=== PATIENT | female | born 1990 | race Caucasian/White ===

== ENCOUNTER 2016-12-16 09:34 | Emergency (ER) | payer BC, OTHER ==
[~2016-12-16] VITALS: Ht 167.6 cm; Wt 58.3 kg
[2016-12-16 09:47] VITALS: TEMP 36.9; Ht 167.6 cm; Wt 58.3 kg
[2016-12-16] MEDS ORDERED: XYLOCAINE 1%/SOD BICARB 20 ML VIAL INFIL ONE (10:00)
--- NOTE | 2016-12-16 11:09 | EMERGENCY ROOM VISIT NOTE ---
ED Visit Note First contact with patient: 09:49 CHIEF COMPLAINT: Left Knee laceration HISTORY OF PRESENT ILLNESS: This 26-year-old female presents the ER with chief complaint of a laceration to her left knee. The patient states that she was running and tripped and fell into some rocks. The patient washed out the wound. This occurred approximately one hour ago. The patient is able to walk on her leg. The patient's tetanus is up-to-date. REVIEW OF SYSTEMS: 6 system review was performed and was negative unless stated otherwise in history of present illness. PMH: The patient is healthy; fractured clavicle SOCIAL HISTORY: Patient lives with her . The patient denies any tobacco or alcohol use. PHYSICAL EXAM: Vital Signs: Were reviewed Reviewed Nurse's notes. GENERAL: 26- year-old white female appears in no acute distress. MENTAL Status: Alert and oriented 3. LEFT KNEE: No gross bony deformity noted. No erythema or edema noted. Patient is full range of motion of her left knee. No ligament instability noted. There is a 3 cm horizontal laceration just inferior to the patella on the anterior surface. There is no active bleeding. The wound looks dirty. Deep structures are visualized. EMERGENCY DEPARTMENT COURSE: The patient was evaluated. Wound Repair: Complexity: Basic. Verbal consent was obtained after the risks and benefits were explained, including but not limited to bleeding, scarring, infection, pain, and bone/joint /nerve damage. The skin was prepped with betadine and a sterile field set. The wound was anesthetized with 3.0ml of 1% buffered lidocaine. Copious irrigation was performed using sterile saline and a small amount of debris was removed with forceps.. Debridement was not performed. The wound edges were approximated using 4-0 Ethilon with 6 simple interrupted sutures. Hemostasis and excellent approximation was achieved. Antibacterial ointment and a sterile dressing applied. Detailed wound care instructions and signs and symptoms of infection reviewed with the patient. No complications and the patient tolerated the procedure well. DIAGNOSIS: 3 cm left knee laceration DISCHARGE INSTRUCTIONS & TREATMENT: Take Keflex as prescribed. Keep wound clean and dry. No water on the area for 12-24 hrs then no soaking until sutures removed. Do not allow any crusting or dried blood to accumulate on sutures. If this occurs, use a 1:1 solution of hydrogen peroxide/water on a Q- tip to clean the wound. Use an antibiotic ointment for 3-4 days, then let wound dry. Suture removal in 10 days. Follow up sooner for any signs of infection (increasing redness, swelling, drainage). Ice and elevate for swelling and pain. Tylenol 650 mg every 6 hrs for pain. Current/Historical Medications No Active Prescriptions or Reported Meds Allergies Coded Allergies: No Known Allergies (Unverified , 08/27/09) Vital Signs Date Time Temp Pulse Resp B/P (MAP) Pulse Ox O2 Delivery O2 Flow Rate FiO2 12/16/16 09:47 36.9 104 20 117/69 100 Room Air Departure Information Prescriptions No Active Prescriptions or Reported Meds Referrals No Doctor, Assigned (PCP) Patient Instructions [facility]
[2016-12-16] MEDS ORDERED: CEPH500C2 PO (11:11)
[2016-12-16 11:24] VITALS: BP 108/69; PULSE 70; O2SAT 100
== END 2016-12-16 11:28 | disposition home or self-care (01) ==
LOC: C.EDB 09:36 → C.EDC 11:28
DX: S81.012A Laceration without foreign body, left knee, initial encounter (principal); W01.0XXA Fall on same level from slipping, tripping and stumbling without subsequent striking against object, initial encounter; Z87.81 Personal history of (healed) traumatic fracture

== ENCOUNTER 2016-12-18 10:38 | Emergency (ER) | payer BC ==
[~2016-12-18] VITALS: Ht 167.6 cm; Wt 58.5 kg
[~2016-12-18 10:38] MED LIST: CEPH500C2 PO
[2016-12-18 10:42] VITALS: BP 112/72; TEMP 36.9; Ht 167.6 cm; Wt 58.5 kg
[2016-12-18] MEDS ORDERED: CEFTRIAXONE SOD INJ 1 GM ADDVIAL IV STA (10:54)
[2016-12-18] MEDS ORDERED: KETOROLAC TROMETHAMINE 30 MG/ML VIAL IV STA (10:54)
[2016-12-18 11:19] LABS: BASO % 0.3 %; BASO ABS # 0.02 K/uL (0-0.2); COMPLETE YES; EOS % 0.4 %; HEMATOCRIT 39.7 % (37-47); IG% 0.1 %; LYMPH % 15.3 %; LYMPH ABS # 1.04 K/uL (1.2-3.4); MEAN CELL VOLUME 97.1 fL (80-100); MEAN PLATELET VOLUME 9.3 fL (7.4-10.4); MONO % 9.8 %; NEUT % 74.1 %; PLATELET COUNT 243 K/uL (130-400); RED BLOOD COUNT 4.09 M/uL (4.2-5.4); WHITE BLOOD COUNT 6.81 K/uL (4.8-10.8)
[2016-12-18 11:36] LABS: BUN/CREATININE RATIO 16.8 (10-20); CALCIUM 8.7 mg/dl (8.5-10.1); CREATININE 0.64 mg/dl (0.60-1.20); POTASSIUM 3.7 mmol/L (3.5-5.1)
[2016-12-18] MEDS ORDERED: SULF800T23 PO (11:48)
[2016-12-18] MEDS ORDERED: CEPH500C PO (11:48)
--- NOTE | 2016-12-18 11:50 | EMERGENCY ROOM VISIT NOTE ---
History First contact with patient: 10:47 Chief Complaint: WOUND INFECTION Stated Complaint: INFECTION FROM SUTURES-SEEN IN ER ON FRI MORNING Nursing Triage Summary: pt reports stitches to L knee on Fri, noted sat increased redness , swelling and drainage from site pt currently on keflex which was started on Mon History of Present Illness The patient is a 26 year old female who presents to the Emergency Room with complaints of infection at the site of her sutures on her left knee. The patient was seen here 2 days ago for a laceration just below her left patella. She had fallen onto the grass and [place]. She has been taking Keflex as prescribed to help prevent infection. Last night she noticed that there was some drainage from the wound and redness surrounding it. Today there is less drainage but the area is still red around the wound. The patient denies any fevers. Review of Systems 6 system review was performed and was negative unless stated otherwise in history of present illness. Past Medical/Surgical History Broken clavicle Social History Smoking Status: Never Smoker Alcohol Use: none Drug Use: none Marital Status: Housing Status: lives with family Occupation Status: employed Current/Historical Medications Scheduled Cephalexin Monohydrate (Keflex), 500 MG PO TID Physical Exam Vital Signs Date Time Temp Pulse Resp B/P (MAP) Pulse Ox O2 Delivery O2 Flow Rate FiO2 12/18/16 10:42 36.9 90 20 112/72 100 Room Air Physical Exam GENERAL: 26-year-old white female appears in no acute distress. MENTAL Status: Alert and oriented 3. LUNGS: Clear auscultation without wheezes rales or rhonchi. CARDIAC: Regular rate and rhythm without murmur. Pulses is full and equal throughout. LEFT KNEE: Sutures are in place just below the patella. There is no purulent drainage from the wound at this time. There is surrounding erythema with increased temperature to touch. Medical Decision & Procedures Laboratory Results 12/18/16 11:08 Red Blood Count 4.09, Mean Corpuscular Volume 97.1, Mean Corpuscular Hemoglobin 33.0, Mean Corpuscular Hemoglobin Concent 34.0, Mean Platelet Volume 9.3, Neutrophils (%) (Auto) 74.1, Lymphocytes (%) (Auto) 15.3, Monocytes (%) (Auto) 9.8, Eosinophils (%) (Auto) 0.4, Basophils (%) (Auto) 0.3, Neutrophils # (Auto) 5.04, Lymphocytes # (Auto) 1.04, Monocytes # (Auto) 0.67, Eosinophils # (Auto) 0.03, Basophils # (Auto) 0.02 12/18/16 11:08 Test 12/18/16 11:08 White Blood Count 6.81 K/uL (4.8-10.8) Red Blood Count 4.09 M/uL (4.2-5.4) Hemoglobin 13.5 g/dL (12.0-16.0) Hematocrit 39.7 % (37-47) Mean Corpuscular Volume 97.1 fL (80-100) Mean Corpuscular Hemoglobin 33.0 pg (25-34) Mean Corpuscular Hemoglobin Concent 34.0 g/dl (32-36) Platelet Count 243 K/uL (130-400) Mean Platelet Volume 9.3 fL (7.4-10.4) Neutrophils (%) (Auto) 74.1 % Lymphocytes (%) (Auto) 15.3 % Monocytes (%) (Auto) 9.8 % Eosinophils (%) (Auto) 0.4 % Basophils (%) (Auto) 0.3 % Neutrophils # (Auto) 5.04 K/uL (1.4-6.5) Lymphocytes # (Auto) 1.04 K/uL (1.2-3.4) Monocytes # (Auto) 0.67 K/uL (0.11-0.59) Eosinophils # (Auto) 0.03 K/uL (0-0.5) Basophils # (Auto) 0.02 K/uL (0-0.2) RDW Standard Deviation 43.1 fL (36.4-46.3) RDW Coefficient of Variation 12.1 % (11.5-14.5) Immature Granulocyte % (Auto) 0.1 % Immature Granulocyte # (Auto) 0.01 K/uL (0.00-0.02) Anion Gap 4.0 mmol/L (3-11) Est Creatinine Clear Calc Drug Dose 123.0 ml/min Estimated GFR () 142.7 Estimated GFR (Non- 123.2 BUN/Creatinine Ratio 16.8 (10-20) Calcium Level 8.7 mg/dl (8.5-10.1) Medications Administered Medications (Trade) Dose Ordered Sig/Umu Route Start Time Stop Time Status Last Admin Dose Admin Ketorolac Tromethamine (Toradol Inj) 30 mg NOW STAT IV 12/18/16 10:54 12/18/16 10:56 DC 12/18/16 11:18 30 MG Ceftriaxone Sodium (Rocephin Inj) 1 gm NOW STAT IV 12/18/16 10:54 12/18/16 10:56 DC 12/18/16 11:18 1 GM ED Course The patient was evaluated. The patient's EMR medication list were reviewed. IV access was obtained. CBC and differential renal profile was ordered. The patient was given Toradol 30 mg IV and Rocephin 1 g IV. There is no fluctuance at this site so only one suture was removed. Labs are reviewed and were unremarkable. The patient was discharged home in stable condition. Medical Decision Differential diagnosis include abscess versus cellulitis. [place] Drug Monitoring Program Search Results: patient reviewed within database Medication Reconcilliation Current Medication List: was personally reviewed by [facility] Blood Pressure Screening Patient's blood pressure: Normal blood pressure Impression Primary Impression: Cellulitis Departure Information Dispostion Home / Self-Care Condition GOOD Prescriptions Sulfa/Trimethoprim (Bactrim Ds 800MG/160MG) Tab 1 TAB PO BID for 10 Days, #20 TAB Prov: Nessa Judd PA-C 12/18/16 Cephalexin Monohydrate (Keflex) 500 Mg Cap 500 MG PO QID, #30 CAP Prov: Nessa Judd PA-C 12/18/16 Referrals No Doctor, Assigned (PCP) Forms HOME CARE DOCUMENTATION FORM, IMPORTANT VISIT INFORMATION, WORK / SCHOOL INSTRUCTIONS Patient Instructions Cellulitis - [facility], [facility] Additional Instructions Keep leg elevated whenever possible. Take ibuprofen 600 mg every 6 hours with food for pain. Start taking the Bactrim today. Resume Keflex tomorrow but it will now be 4 times a day. If the redness extends as we discussed, return to the ER for further antibiotic treatment. Problem Qualifiers Primary Impression: Cellulitis Site of cellulitis: extremity Site of cellulitis of extremity: lower extremity Laterality: left Qualified Codes: L03.116 - Cellulitis of left lower limb
[2016-12-18 12:00] VITALS: PULSE 68; O2SAT 98
[2016-12-18] MEDS ORDERED: SEPTRA DS HOME PACK 1 EA VIAL PO ONE (12:00)
== END 2016-12-18 12:00 | disposition home or self-care (01) ==
LOC: C.EDB 10:39
DX: L03.116 Cellulitis of left lower limb (principal); S81.012A Laceration without foreign body, left knee, initial encounter; W01.0XXA Fall on same level from slipping, tripping and stumbling without subsequent striking against object, initial encounter

== ENCOUNTER 2016-12-26 08:04 | Emergency (ER) | payer BC ==
[~2016-12-26] VITALS: Ht 167.6 cm; Wt 58.2 kg
[~2016-12-26 08:04] MED LIST changes: +CEPH500C PO; +SULF800T23 PO
[2016-12-26 08:10] VITALS: TEMP 36.8; Ht 167.6 cm; Wt 58.2 kg
--- NOTE | 2016-12-26 08:36 | EMERGENCY ROOM VISIT NOTE ---
ED Visit Note First contact with patient: 08:13 CHIEF COMPLAINT: Suture removal This patient returns to the ED today for removal of sutures that were placed 10 days ago. There has been no swelling, redness, or drainage from the wound. The patient feels like the laceration is healing well. REVIEW OF SYSTEMS: Head: No headache, injury or neck pain. Skin: No rash, new lesions, or masses. General: No fever or chills, fatigue, loss of appetite , or significant recent weight gain or loss. She did have cellulitis but since resolved with antibiotics. PMH: The patient is healthy; there is no significant medical or surgical history. SOCIAL HISTORY: Patient lives at home. PHYSICAL EXAM: Vital Signs: Reviewed Nurse's notes. There is a sutured wound on the left knee with no signs of infection. There is no erythema, swelling, or tenderness. Lateral knee joint pain which is improving. Negative Homans sign. There is no calf tenderness. No medial leg pain. EMERGENCY DEPARTMENT COURSE: The sutures were removed without any difficulty and there was no separation of the wound edges. DIAGNOSIS: Healing laceration and suture removal Current/Historical Medications Scheduled Cephalexin Monohydrate (Keflex), 500 MG PO TID Cephalexin Monohydrate (Keflex), 500 MG PO QID Sulfa/Trimethoprim (Bactrim Ds 800MG/160MG), 1 TAB PO BID Allergies Coded Allergies: No Known Allergies (Unverified , 12/18/16) Vital Signs Date Time Temp Pulse Resp B/P (MAP) Pulse Ox O2 Delivery O2 Flow Rate FiO2 12/26/16 08:10 36.8 95 18 116/66 98 Room Air Departure Information Impression Primary Impression: Encounter for removal of sutures Dispostion Home / Self-Care Condition GOOD Referrals No Doctor, Assigned (PCP) Patient Instructions [facility] Additional Instructions DISCHARGE INSTRUCTIONS AND TREATMENT: Wash any remaining crusts off of the wound today and resume your normal activities. Please follow up with family doctor as we discussed.
[2016-12-26 08:53] VITALS: BP 100/57; PULSE 80; O2SAT 100
== END 2016-12-26 08:54 | disposition home or self-care (01) ==
LOC: C.EDB 08:05
DX: S81.012D Laceration without foreign body, left knee, subsequent encounter (principal); X58.XXXD Exposure to other specified factors, subsequent encounter

== ENCOUNTER → 2017-07-28 | Outpatient (CLI) | payer BC | END | disposition home or self-care (01) | LOC: C.PAPS 16:01 | PROVIDERS: ATTEND Obstetrics & Gynecology | DX: Z01.419 Encounter for gynecological examination (general) (routine) without abnormal findings (principal) ==

== ENCOUNTER → 2017-07-28 | Outpatient (CLI) | payer BC ==
--- NOTE | 2017-07-28 16:02 | DIAGNOSTIC IMAGING REPORT ---
L FOOT MIN 3 VIEWS CLINICAL HISTORY: LEFT FOOT PAIN pain COMPARISON: None. DISCUSSION: The bones and joint spaces appear intact. There is no evidence of fracture, dislocation or bony disease. There is no evidence for soft tissue swelling. IMPRESSION: Negative study. The above report was generated using voice recognition software. It may contain grammatical, syntax or spelling errors. Electronically signed by: Guillermo Judd M.D. 07/28/2017 4:01 PM Dictated Date/Time: 07/28/2017 4:00 PM
== END | disposition home or self-care (01) ==
LOC: C.RDSM 15:05
PROVIDERS: ATTEND Family Medicine
DX: M79.672 Pain in left foot (principal)

== ENCOUNTER → 2017-12-07 | Outpatient (CLI) | payer BC | END | disposition home or self-care (01) | LOC: C.LABSPEC 15:04 | PROVIDERS: ATTEND Obstetrics & Gynecology | DX: Z30.430 Encounter for insertion of intrauterine contraceptive device (principal) ==

== ENCOUNTER 2019-11-23 09:44 | Inpatient (IN) ==
[2019-11-23] MEDS ORDERED: LACTATED RINGER'S 1,000 ML IV PRN (10:59)
[2019-11-23] MEDS ORDERED: OXYTOCIN 30 UNITS/500 ML BAG IV PRN ×2 (10:59→12:21)
--- NOTE | 2019-11-23 11:09 | History & Physical Report ---
Date of Service November 23, 2019 Assessment & Plan (1) Normal labor: IUP at term in labor- membranes ruptured for clear fluid with exam plans unmedicated COVID testing not done. anticipate vaginal Present on Admission?: Yes History of Present Illness Chief Complaint: contractions Primary Care Provider: RAJIV Duenas Patient is a 29 yo white female EDC 11/23/19 who presents with regular contractions for several hours with bloody show & diarrhea. no SPROM. GBS negative. has been uncomplicated. blood type A positive. Allergies Allergy/AdvReac Type Severity Reaction Status Date / Time No Known Allergies Allergy Verified 11/18/19 14:58 Home Medications Home Medications Medication Instructions Recorded Confirmed Type azelaic acid 15 % topical gel 1 appln TOP BID 12/13/18 11/18/19 History prenat.vits,carli,vjd-[id number] 1 tab PO DAILY 04/25/19 11/18/19 History docusate sodium PO 07/15/19 11/18/19 History Patient History Medical History (Updated 11/23/19 @ 11:07 by Nancy Allen MD, FACOG) Common migraine without aura Dyspareunia Hx of migraines Left breast lump Surgical History H/O wisdom tooth extraction History of surgery on extremity Clavicle fracture repair Social History (Updated 04/25/19 @ 14:23 by Dori Maharaj) Preferred Language: Kyrgyz Beliefs That Will Affect Care: None marital status: marital status details: Kyle Duarte (26) [phone] Current Living Situation: Spouse Current Living Situation Comment: lives with spouse, no pets current occupational status: employed 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 @ [employer] Feels Safe at Home: Yes Safety Concerns: Feels Safe At This Time Smoking Status: Never smoker Hx Alcohol Use: No Hx Substance Use: No Review of Systems All systems reviewed & are unremarkable except as noted in HPI & below Physical Exam Constitutional: WD/WN, vitals as above Respiratory: normal respiratory effort, lungs clear to auscultation Cardiovascular: RRR, no murmur, no edema Gastrointestinal (Abdomen): normal bowel sounds, soft, nontender, no hepatosplenomegaly Psychiatric: A+Ox3, euthymic affect Genitourinary: OB Exam Abdomen: + vertex, + estimated weight (7-8 pounds) and + regular contractions Manual OB Exam: + cervical dilation 10 cm, + cervical effacement 100% and + station 0 OB Exam Monitor Tracing: + external FHT monitor used, + external uterine monitor used, + category I and + normal FHT variability Results & Data ([facility]) Vital Signs (Past 12 Hours) Vital Signs Temp Resp 11/23/19 10:08 97.9 F 20 Coding Level of Care Code None Diagnoses Normal labor O80; Z37.9
[2019-11-23 11:24] LABS: Hematocrit (blood only) 37.7 % (37-47); Hemoglobin 13.3 g/dL (12.0-16.0); Mean Corpuscular Hemoglobin 34.3 pg (25-34); Mean Corpuscular Volume 97.2 fL (80-100); Mean Platelet Volume 9.8 fL (7.4-10.4); Platelet Count 225 K/uL (130-400); RDW Coefficient of Variation 12.6 % (11.5-14.5); RDW Standard Deviation 44.2 fL (36.4-46.3); Red Blood Count 3.88 M/uL (4.2-5.4); White Blood Count 13.15 K/uL (4.8-10.8)
[2019-11-23 11:25] LABS: Mean Corpuscular Hgb Conc 35.3 g/dL (32-36)
[2019-11-23] MEDS: OXYTOCIN 30 UNITS/500ML NSS ONE ×2 (11:40→21:31)
[2019-11-23] MEDS ORDERED: ACETAMINOPHEN 325 MG TAB PO PRN (12:21)
[2019-11-23] MEDS ORDERED: OXYCODONE/ACETAMINOPHEN 5mg/325mg TAB PO PRN (12:21)
[2019-11-23] MEDS ORDERED: BENZOCAINE 20% AER SPR 82.5 GM CAN EXT PRN (12:21)
[2019-11-23] MEDS ORDERED: HYDROCORTISONE ACETATE 25 MG SUPP PR PRN (12:21)
[2019-11-23] MEDS ORDERED: bisacodyL 10 MG SUPP PR PRN (12:21)
[2019-11-23] MEDS ORDERED: SUPERCREAM 0.870% 15 GM JAR EXT PRN (12:21)
--- NOTE | 2019-11-23 15:52 | Delivery Summary ---
DATE OF OPERATION: 11/23/2019 The patient is a 29-year-old 1, para 0 white female who had presented following regular contractions since 0600 that morning. No ruptured membranes, but she was having bloody show and diarrhea. She was anterior lip. On presentation, she was requesting an unmedicated . Membranes were ruptured during the initial exam for clear fluid, approximately 20 minutes later she felt the urge to push and pushed effectively over intact perineum for delivery of a viable male . The rest of the infant delivered easily and was placed on the mother's abdomen for further attention and drying. The cord was clamped after approximately 1 minute of life and cord had stopped pulsing. The placenta was expressed intact with a 3-vessel cord. A second-degree bilateral vaginal lacerations were repaired with 3-0 chromic in the usual fashion. 1% lidocaine was used to anesthetize the area prior to the repair. Estimated blood loss was 400 mL bleeding was controlled with dilute Pitocin. Mother and infant were doing well after delivery. I attest to the content of the Intraoperative Record and any orders documented therein. Any exception s are noted below.
[2019-11-23] MEDS ORDERED: DOCUSATE SODIUM 100 MG CAP PO ONE (19:40)
[2019-11-23] MEDS: IBUPROFEN 600 MG TAB PO PRN (19:41)
[2019-11-23] MEDS: DOCUSATE SODIUM 100 MG CAP PO SCH (19:41)
[2019-11-24] MEDS: IBUPROFEN 600 MG TAB PO PRN ×5 (00:05→21:02)
[2019-11-24 05:48] LABS: Hematocrit (blood only) 30.9 % (37-47); Hemoglobin 10.7 g/dL (12.0-16.0); Mean Corpuscular Hgb Conc 34.6 g/dL (32-36); Mean Corpuscular Volume 98.1 fL (80-100); Mean Platelet Volume 9.6 fL (7.4-10.4); Platelet Count 209 K/uL (130-400); RDW Coefficient of Variation 12.9 % (11.5-14.5); RDW Standard Deviation 45.6 fL (36.4-46.3); Red Blood Count 3.15 M/uL (4.2-5.4)
[2019-11-24] MEDS: PRENATAL VITAMIN 1 TAB PO SCH (08:42)
[2019-11-24] MEDS: DOCUSATE SODIUM 100 MG CAP PO SCH ×2 (08:42→21:03)
--- NOTE | 2019-11-24 08:46 | Obstetrical Progress Note ---
Date of Service November 24, 2019 Assessment & Plan (1) Encounter for care and examination after delivery: satisfactory progress continue current care plan Day #:: 1 Subjective Ambulation: ambulating normally Voiding: no voiding problems Passing Gas:: Yes Diet Tolerance:: regular diet Lochia:: Moderate Feeding Type:: breast feeding Review of Systems All systems reviewed & are unremarkable except as noted in HPI & below Physical Exam Constitutional WD/WN, vitals as above Gastrointestinal (Abdomen) normal bowel sounds, soft, nontender, no hepatosplenomegaly Psychiatric A+Ox3, euthymic affect Genitourinary OB Exam Abdomen: + fundal height Fundus: + firm and + relation to umbilicus (1 below) Results & Data ([facility]) Vital Signs (Past 12 Hours) Vital Signs Temp Pulse Resp BP Pulse Ox 11/24/19 04:30 97.9 F 78 20 110/68 99 11/23/19 23:00 98.1 F 78 20 113/67 99
[2019-11-24] MEDS ORDERED: DIPHTHERIA/TETANUS/PERTUSSIS 0.5 ML SYR/VIAL IM ONE (09:00)
[2019-11-24] MEDS ORDERED: bisacodyL 5 MG TABEC PO SCH (20:00)
[2019-11-25] MEDS: IBUPROFEN 600 MG TAB PO PRN ×3 (01:58→12:54)
--- NOTE | 2019-11-25 06:02 | Obstetrical Progress Note ---
Date of Service November 25, 2019 Assessment & Plan (1) Normal labor: POD # 2 Doing well, ambulating well, voiding well, tolerating oral intake. Continue routine post care. After discharge will have follow-up in 6 weeks. Lidia Kathleen is a 29 y/o female ; PPD # 2 following spontaneous vaginal delivery at 38 weeks; doing well this morning; 1/2 abdominal cramping/ pain; voiding well; tolerating meals overnight and able to ambulate some; some persistent spotting with intermittent improvement this morning. Review of Systems Constitutional: denies fever, chills, sweat, headache Respiratory: denies shortness of breath, difficulty breathing Cardiac: denies chest pain, palpitations, chest pressure Breast: denies breast pain : denies dysuria Physical Exam General: Alert, oriented. No acute distress. Cardiac: Regular rate and rhythm, no murmurs/rubs/gallops. Respiratory: Clear to auscultation bilaterally a/p, no wheezes/rales/rhonchi. No increased work of breathing. Symmetrical chest rise. No respiratory distress. Abdomen: Soft, nontender, nondistended. Bowel sounds present. Uterus: Uterine fundus firm, palpable _cm below umbilicus. Lower Extremities: No lower extremity edema or swelling. No deep calf pain. Dave's negative bilaterally. Results & Data Vital Signs (Past 12 Hours) Vital Signs Temp Pulse Resp BP Pulse Ox 11/24/19 23:25 36.7 C 84 18 111/67 99 11/24/19 20:50 36.8 C 86 18 101/65 99 Resident Activity Tracking Resident Involvement: Resident Care Provided Care Provided: OB Delivery
[2019-11-25] MEDS: PRENATAL VITAMIN 1 TAB PO SCH (08:07)
[2019-11-25] MEDS: DOCUSATE SODIUM 100 MG CAP PO SCH (08:07)
[2019-11-25 08:14] LABS: Hematocrit (blood only) 29.8 % (37-47); Hemoglobin 10.1 g/dL (12.0-16.0)
== END 2019-11-25 16:00 | disposition home or self-care (01) | DRG 807 ==
LOC: 4S1 09:44 → OPB 09:44 → 4S1 10:59 → 4S2 17:07

== ENCOUNTER 2022-01-05 18:27 | Inpatient (IN) ==
[2022-01-05] MEDS ORDERED: LIDOCAINE 1% LOCAL 20 ML VIAL INFIL PRN (18:59)
[2022-01-05] MEDS ORDERED: OXYTOCIN 30 UNITS/500 ML BAG IV PRN ×2 (18:59→20:35)
[2022-01-05] MEDS ORDERED: LACTATED RINGER'S 1,000 ML IV PRN (18:59)
[2022-01-05 19:24] LABS: Hematocrit (blood only) 38.1 % (34.1-44.9); Hemoglobin 13.1 g/dl (12.0-16.0); Mean Corpuscular Hemoglobin 33.1 pg (25.0-34.0); Mean Corpuscular Hgb Conc 34.4 g/dL (32.0-36.0); Mean Corpuscular Volume 96.2 fL (80.0-100.0); Mean Platelet Volume 9.1 fL (9.4-12.3); Platelet Count 262 K/uL (130-400); RDW Coefficient of Variation 12.6 % (11.5-14.5); RDW Standard Deviation 44.6 fL (36.4-46.3); Red Blood Count 3.96 M/uL (3.93-5.22); White Blood Count 8.21 K/ul (4.8-10.8)
[2022-01-05] MEDS ORDERED: ERYTHROMYCIN OP OINT 1 GM PKT ONE (20:05)
--- NOTE | 2022-01-05 20:29 | Delivery Summary ---
Vaginal Delivery Summary Date of Service January 05, 2022 Vaginal Delivery Summary Patient presented in active labor at 39 weeks this was her second baby group B strep negative she progressed from 5 cm to 8 requested rupture of membranes this was performed for clear fluid she subsequently delivered a baby in occiput anterior position fluid was clear no nuchal cord mouth and nares suctioned with bulb baby delivered with gentle traction no excessive force used live vigorous male infant cord clamped and cut after pulsations had stopped at maternal request Cord blood obtained placenta removed with gentle traction IV Pitocin started as an uterine tone improved there was no tearing sponge and instrument counts correct estimated blood loss 250 mL
[2022-01-05] MEDS ORDERED: bisacodyL 10 MG SUPP PR PRN (20:35)
[2022-01-05] MEDS ORDERED: oxyCODONE/ACETAMINOPHEN 5mg/325mg TAB PO PRN (20:35)
[2022-01-05] MEDS ORDERED: DIPHTHERIA/TETANUS/PERTUSSIS 0.5 ML SYR/VIAL IM ONE (20:35)
[2022-01-05] MEDS ORDERED: HYDROCORTISONE ACETATE 25 MG SUPP PR PRN (20:35)
[2022-01-05] MEDS ORDERED: BENZOCAINE 20% AER SPR 82.5 GM CAN EXT PRN (20:35)
[2022-01-05] MEDS ORDERED: ACETAMINOPHEN 325 MG TAB PO PRN (20:35)
[2022-01-05] MEDS: IBUPROFEN 600 MG TAB PO PRN (21:00)
[2022-01-05] MEDS ORDERED: DOCUSATE SODIUM 100 MG CAP PO SCH (21:00)
[2022-01-06] MEDS: IBUPROFEN 600 MG TAB PO PRN ×4 (05:56→19:14)
--- NOTE | 2022-01-06 06:59 | Obstetrical Progress Note ---
Date of Service January 06, 2022 Assessment & Plan (1) Encounter for supervision of normal in multigravida, antepartum: doing well, home Subjective Constitutional: + as per Subjective / HPI Physical Exam Constitutional WD/WN, vitals as above well developed and well nourished Respiratory normal respiratory effort, lungs clear to auscultation normal respiratory effort Cardiovascular RRR, no murmur, no edema Gastrointestinal (Abdomen) normal bowel sounds, soft, nontender, no hepatosplenomegaly Results & Data ([facility]) Vital Signs (Past 12 Hours) Vital Signs Temp Pulse Pulse Resp BP BP Pulse Ox 01/06/22 04:45 98.4 F 81 18 100/65 99 01/05/22 23:00 98.2 F 82 18 106/70 99 01/05/22 18:59 99.7 F H 105 H 20 111/83 01/05/22 22:27 78 107/72 01/05/22 22:12 71 103/71 01/05/22 21:57 78 100/68 01/05/22 21:42 78 108/69 01/05/22 21:27 71 18 103/64 01/05/22 21:12 77 18 104/73 01/05/22 20:57 73 18 109/73 01/05/22 20:48 73 18 112/57 L 01/05/22 20:27 89 18 127/68 O2 Del Method 01/06/22 04:45 Room Air 01/05/22 23:00 Room Air 01/05/22 18:59 01/05/22 22:27 01/05/22 22:12 01/05/22 21:57 01/05/22 21:42 01/05/22 21:27 01/05/22 21:12 01/05/22 20:57 01/05/22 20:48 01/05/22 20:27
[2022-01-06] MEDS ORDERED: PRENATAL VITAMIN 1 TAB PO SCH (08:00)
[2022-01-06 08:12] LABS: Hematocrit (blood only) 36.3 % (34.1-44.9); Hemoglobin 12.1 g/dl (12.0-16.0); Mean Corpuscular Hemoglobin 32.4 pg (25.0-34.0); Mean Corpuscular Hgb Conc 33.3 g/dL (32.0-36.0); Mean Corpuscular Volume 97.3 fL (80.0-100.0); Mean Platelet Volume 9.2 fL (9.4-12.3); Platelet Count 241 K/uL (130-400); RDW Coefficient of Variation 12.7 % (11.5-14.5); Red Blood Count 3.73 M/uL (3.93-5.22); White Blood Count 10.83 K/ul (4.8-10.8)
[2022-01-06] MEDS ORDERED: bisacodyL 5 MG TABEC PO SCH (20:00)
== END 2022-01-06 21:55 | disposition home or self-care (01) | DRG 807 ==
LOC: OPB 18:27 → 4S1 18:30 → 4E2 22:47
DX: Z37.0 Single live birth; O80 Encounter for full-term uncomplicated delivery; Z3A.39 39 weeks gestation of pregnancy

== ENCOUNTER 2023-11-23 16:38 | Inpatient (IN) ==
[2023-11-23] MEDS ORDERED: LACTATED RINGER'S 1,000 ML IV PRN (16:41)
[2023-11-23] MEDS ORDERED: LIDOCAINE 1% LOCAL 20 ML VIAL INFIL PRN (16:41)
[2023-11-23] MEDS: OXYTOCIN 30 UNITS/NSS 30 UNITS/500 ML BAG IV PRN (17:08)
[2023-11-23 17:12] LABS: Hematocrit (blood only) 37.7 % (37.0-47.0); Mean Corpuscular Hemoglobin 33.4 pg (25.0-34.0); Mean Corpuscular Hgb Conc 34.5 g/dL (32.0-36.0); Mean Corpuscular Volume 96.9 fL (80.0-100.0); Mean Platelet Volume 9.3 fL (9.4-12.4); Platelet Count 236 K/uL (130-400); RDW Coefficient of Variation 12.6 % (11.5-14.5); RDW Standard Deviation 44.5 fL (36.4-46.3); Red Blood Count 3.89 M/uL (4.20-5.40); White Blood Count 9.61 K/ul (4.8-10.8)
--- NOTE | 2023-11-23 17:13 | Delivery Summary ---
Vaginal Delivery Summary Date of Service November 23, 2023 Vaginal Delivery Summary Spontaneous vaginal delivery the patient arrived in active labor at 9 cm she is well-known to our practice she was at term 2 prior vaginal deliveries group B strep negative she was 9 cm IV was started blood work was taken I offered to rupture membranes as the patient declined epidural and she excepted after rupture of membranes she was able to push over a total of 1 contraction delivering baby in occiput anterior once the head was delivered gentle traction on the baby there was no nuchal cord fluid was clear easy delivery combined with maternal expulsive efforts and gentle traction live vigorous female infant cord clamped and cut cord blood obtained placenta removed with traction IV Pitocin started there was no tearing sponge and instruments correct quantitative blood loss 100 mL [facility] Vaginal Delivery Charge Delivery Type Details:
[2023-11-23] MEDS ORDERED: BENZOCAINE 20% SPRY 85 APPLN/85 GM CAN EXT PRN (17:29)
[2023-11-23] MEDS ORDERED: HYDROCORTISONE ACETATE 25 MG SUPP PR PRN (17:29)
[2023-11-23] MEDS ORDERED: OXYTOCIN 30 UNITS/NSS 30 UNITS/500 ML BAG IV PRN (17:29)
[2023-11-23] MEDS ORDERED: ACETAMINOPHEN 325 MG TAB PO PRN (17:29)
[2023-11-23] MEDS ORDERED: oxyCODONE/ACETAMINOPHEN 5mg/325mg TAB PO PRN (17:29)
[2023-11-23] MEDS ORDERED: bisacodyL 10 MG SUPP PR PRN (17:29)
[2023-11-23] MEDS: DIPHTHER/TETAN/PERTUS Vaccine (Tdap, Adol/Adult) 0.5mL IM ONE (19:57)
[2023-11-23] MEDS: DOCUSATE SODIUM 100 MG CAP PO SCH (22:04)
[2023-11-24] MEDS: IBUPROFEN 600 MG TAB PO PRN (00:34)
--- NOTE | 2023-11-24 06:01 | Obstetrical Progress Note ---
Date of Service <Johnny Moncada DO - Last Filed: 11/24/23 07:15> November 24, 2023 Assessment & Plan <Johnny Moncada DO - Last Filed: 11/24/23 07:15> (1) Encounter for assessment: Patient is PPD 1 s/p and doing well - Eating well, voiding well, ambulating well - vitals reviewed and within normal limits - pain well controlled with analgesics - OOB, ambulation, diet progression as tolerated - Blood type: A+, GBS neg, rubella immune - Plan to discharge today - After discharge, 6 week follow up with OB visit type: exam and care immediately after delivery Qualified Code(s): Z39.0 - Encounter for care and examination of mother immediately after delivery <Hannah Cortez MD, FACOG - Last Filed: 11/24/23 07:31> (1) Encounter for assessment: Subjective <Johnny Moncada DO - Last Filed: 11/24/23 07:15> 33 yo post- day 1 s/p Ambulation: ambulating normally Voiding: no voiding problems Passing Gas:: Yes Diet Tolerance:: regular diet Lochia:: Small Feeding Type:: breast feeding Current Pain Level:2-3/10 at rest and ambulating 5/6 when and during cramps Resting comfortably this AM in NAD. Denies JEFFERY, CP, SOB, N/V/D, LE pain/swelling. Physical Exam <Johnny Moncada DO - Last Filed: 11/24/23 07:15> General: patient resting comfortably, NAD, non-toxic in appearance, answers questions appropriately. Skin: warm, dry, intact HEENT: NC/AT, anicteric sclera, conjunctiva without injection, moist mucus membranes. Heart: +S1/S2, regular, no m/r/g Lungs: equal air entry bilaterally, no rales/rhonchi/wheezes Abd: +BS, soft, NT/ND, uterine fundus firm at umbilicus Ext: warm, no clubbing/cyanosis or edema, Dave's neg. Neuro: nonfocal, speech intact, no facial droop, moving all extremities. Results & Data <Johnny Moncada DO - Last Filed: 11/24/23 07:15> Vital Signs (Past 12 Hours) Vital Signs Temp Pulse Pulse Resp BP BP Pulse Ox 11/24/23 05:20 36.4 C L 70 16 107/67 98 11/23/23 23:30 36.7 C 84 18 106/62 98 11/23/23 20:45 37 C 89 18 108/70 99 11/23/23 19:20 85 103/60 11/23/23 19:15 37.0 C 18 11/23/23 19:09 71 114/63 11/23/23 18:55 82 113/54 L 11/23/23 18:45 18 11/23/23 18:40 90 122/59 L 11/23/23 18:25 90 119/71 11/23/23 18:15 18 11/23/23 18:09 65 112/68 O2 Del Method 11/24/23 05:20 Room Air 11/23/23 23:30 Room Air 11/23/23 20:45 Room Air 11/23/23 19:20 11/23/23 19:15 11/23/23 19:09 11/23/23 18:55 11/23/23 18:45 11/23/23 18:40 11/23/23 18:25 11/23/23 18:15 11/23/23 18:09 Supervising Physician <Hannah Cortez MD, FACOG - Last Filed: 11/24/23 07:31> Co-Signing Physician Notes Resident Physician Supervision Note: I was present with DrRaza [Name of resident] during the history and exam. I discussed the case with the resident and agree with the findings and plan as do cumented in the note. Any exceptions or clarifications are listed here: [None] Documented By: Hannah Cortez MD, FACOG Resident Activity Tracking <Johnny Moncada DO - Last Filed: 11/24/23 07:15> Resident Involvement: Resident Care Provided Care Provided: OB Delivery
[2023-11-24 06:18] LABS: Hematocrit (blood only) 36.2 % (37.0-47.0); Hemoglobin 12.3 g/dl (12.0-16.0); Mean Corpuscular Hemoglobin 33.3 pg (25.0-34.0); Mean Corpuscular Volume 98.1 fL (80.0-100.0); Mean Platelet Volume 9.6 fL (9.4-12.4); Platelet Count 227 K/uL (130-400); RDW Coefficient of Variation 12.6 % (11.5-14.5); RDW Standard Deviation 45.6 fL (36.4-46.3); Red Blood Count 3.69 M/uL (4.20-5.40); White Blood Count 9.62 K/ul (4.8-10.8)
[2023-11-24] MEDS: PRENATAL VITAMIN 1 TAB PO SCH (09:02)
[2023-11-24] MEDS ORDERED: bisacodyL 5 MG TABEC PO SCH (20:00)
== END 2023-11-24 17:40 | disposition home or self-care (01) | DRG 807 ==
LOC: OPB 16:38 → 4S1 16:39 → 4E2 19:59